=== PATIENT | male | born 1955 | race Caucasian/White ===

== ENCOUNTER → 2018-05-04 | Outpatient (CLI) | payer OTHER ==
--- NOTE | 2018-05-04 08:28 | Diagnostic Imaging Report ---
PROCEDURE: CT abdomen and pelvis without contrast. TECHNIQUE: Multiple contiguous axial images were obtained through the abdomen and pelvis without the use of intravenous contrast. INDICATION: Hematuria. No prior studies are available for comparison. FINDINGS: The lung bases are clear. The liver contains a tiny 8 mm low-density in the posterior right lobe, too small to characterize but most likely a cyst. No other liver lesions are seen. The gallbladder is unremarkable. The pancreas and spleen are unremarkable. There is some nodular enlargement of both adrenal glands. Nodule in the right is 16 mm and low density suggestive of an adenoma. Nodule on the left is 22 mm also fairly low density and suggestive of an adenoma. Followup could be obtained. The right kidney is unremarkable. Central densities in the left kidney are seen, perhaps representing renal sinus cysts. No definite calculi or hydronephrosis is seen. No ureteral or bladder calculi are detected. The bowel loops are nondilated. There is diverticulosis of the descending and sigmoid colon, but no evidence of acute diverticulitis. Prostate is unremarkable. No definite abdominal or pelvic lymphadenopathy is seen. Bony structures are nonacute. IMPRESSION: 1. Probable hepatic and renal cysts. No urinary tract calculi or obstruction is seen. 2. Uncomplicated diverticulosis. Dictated by: Dictated on workstation # [id number]
== END ==
LOC: RAD 07:47
PROVIDERS: ATTEND Urology
DX: K57.30 Diverticulosis of large intestine without perforation or abscess without bleeding (principal); R31.0 Gross hematuria
CPT/HCPCS: 74176

== ENCOUNTER → 2021-05-05 | Outpatient (CLI) | payer OTHER ==
--- NOTE | 2021-05-05 11:28 | Diagnostic Imaging Report ---
CT Lung Screening INDICATION: Current smoker with a 40 pack year history. TECHNIQUE: Noncontrast, low-dose CT imaging performed according to lung cancer screening protocol. Auto Exposure Controls were utilized during the CT exam to meet ALARA standards for radiation dose reduction. COMPARISON: CT abdomen 05/04/2018 FINDINGS: HEART/MEDIASTINUM: Heart size normal. Thoracic aortic contour unremarkable. No suggestion for pathologically enlarged mediastinal lymph nodes on limited, noncontrast imaging. LUNGS/MEASURED PULMONARY NODULES: Mild bullous changes lung apices. No consolidating infiltrate. Minimal areas of bronchial wall thickening. Small granuloma left lower lobe. No suspicious appearing pulmonary mass. OTHER: Partially visualized lobulated left adrenal gland mass appearing generally stable. IMPRESSION: 1. Negative appearing baseline lung screening assessment. LUNG-RADS CATEGORY: 1 LUNG SCREENING MANAGEMENT/RECOMMENDATIONS: Continued annual screening with low dose CT in 12 months. Dictated by: Dictated on workstation # [id number]
== END ==
LOC: RAD 08:45
PROVIDERS: ATTEND Family Medicine
DX: Z12.2 Encounter for screening for malignant neoplasm of respiratory organs (principal); F17.210 Nicotine dependence, cigarettes, uncomplicated
CPT/HCPCS: 71271